=== PATIENT | female | born 1955 | race Caucasian/White ===

== ENCOUNTER 2016-11-22 05:07 | Inpatient (IN) | payer OTHER ==
[~2016-11-22] VITALS: Ht 172.7 cm; Wt 92.6 kg
[~2016-11-22 05:07] MED LIST: ALPRAZOLAM0.5 MG PO; AMBIEN5 MG PO; AMLODIPINE BESY10 MG PO; ASPIRIN81 M1 PO; CALCIUM 600 +1 EACH PO; CARBAMAZEPINE100 MG PO; CARBATROL-ER100 MG PO; CLOTRIMAZOLE; CYMBALTA30 MG PO; CYMBALTA60 MG PO; DILAUDID2 MG PO; GLUCOVANCE 21 TABLET PO; GLYBURID-METFO1 EAC1 PO; GLYBURID-METFO1 EAC2 PO; LEVOTHROID25 MCG PO; LEVOXYL25 MCG PO; LISINOPRIL10 MG PO; LISINOPRIL2.5 MG PO; LORAZEPAM0.5 MG PO; LUNESTA3 MG PO; NEURONTIN100 MG PO; NORVASC10 MG PO; OXYCODONE HCL10 MG PO; PERCOCET 5/31 TABLET PO; ST. JOSEPH ASPI81 MG PO; TRIPLE ANTIBIOTIC OI; XANAX0.5 MG PO; ZESTRIL2.5 MG PO; ZOLOFT100 MG PO; ZOLPIDEM TARTRAT5 MG PO; ZOVIRAX TP; [UNRECOGNIZED DRUG - OTHER]
[2016-11-22 05:40] LABS: EOSINOPHIL (%) 0.2 % (0-5); HEMATOCRIT 40.7 % (36.0-46.0); IMMATURE GRANULOCYTE (%) 0.6 % (0.0-0.7); IMMATURE GRANULOCYTE COUNT 0.1 K/uL; INSTRUMENT ABS NEUTROPHIL CT 14.5 K/uL; MCH 28.4 PG (29.0-34.0); MCHC 31.2 G/DL (30.0-36.0); MCV 91.1 FL (83-99); MEAN PLAT.VOLUME 11.1 uM^3 (9.5-12.4); MONOCYTE (%) 3.8 % (3-12); MONOCYTE COUNT 0.6 K/uL (0-0.8); NEUTROPHIL COUNT 14.5 K/uL (1.8-6.4); PLATELET COUNT 200 K/uL (156-360); RBC DIS.WIDTH-CV 12.4 % (11.8-14.6); RBC DIS.WIDTH-SD 41.1 % (39-53); RED BLOOD COUNT 4.47 M/uL (3.80-5.20); WHITE BLOOD COUNT 16.2 K/uL (4.1-10.2)
[2016-11-22 05:51] LABS: CHLORIDE 107 mEq/L (99-109); POTASSIUM 3.7 mEq/L (3.7-5.4); SODIUM 140 mEq/L (136-147)
[2016-11-22 05:53] LABS: GLUCOSE 253 mg/dL (70-99)
[2016-11-22 05:54] LABS: ANION GAP 17 MEQ/L (2-14)
[2016-11-22 05:55] LABS: TOTAL BILIRUBIN 0.1 mg/dL (0.0-1.0)
[2016-11-22 05:56] LABS: SERUM ETHYL ALCOHOL < 10 mg/dL
[2016-11-22 05:57] LABS: GFR ESTIMATE (CALCULATED) 33 mL/min/
[2016-11-22 05:58] LABS: ALKALINE PHOSPHATASE 128 IU/L (3-129)
[2016-11-22 05:59] LABS: UREA NITROGEN (BUN) 22 mg/dL (9-23)
[2016-11-22 06:00] LABS: SALICYLATE < 5.0 MG/DL (15-30)
[2016-11-22 06:01] LABS: CREATINE KINASE 773 IU/L (1-294); TOTAL CK 773 IU/L (1-294); TROP-I INTERPRETATION NEGATIVE; TROPONIN-I 0.02 ng/mL (0.0-0.30)
[2016-11-22 06:06] LABS: CK-MB 24.6 ng/mL (0.0-4.9)
[2016-11-22 06:32] LABS: ADD MIUA? YES; BILIRUBIN NEGATIVE; BLOOD MODERATE; COLOR YELLOW ((YELLOW)); GLUCOSE (STRIP) 50; KETONES NEGATIVE; LEUKOCYTES NEGATIVE; NITRITE NEGATIVE; PROTEIN (STRIP) 100; SPECIFIC GRAVITY 1.017 (1.000-1.030); UROBILINOGEN 0.2 MG/DL (0.2-1.0)
[2016-11-22 06:40] LABS: AMPHETAMINE NEGATIVE (500 ng/mL); BARBITURATES NEGATIVE (200 ng/mL); BENZODIAZEPINES NEGATIVE (150 ng/mL); COCAINE NEGATIVE (150 ng/mL); INTERNAL CONTROLS VALID? YES; METHADONE NEGATIVE (200 ng/mL); METHAMPHETAMINE NEGATIVE (500 ng/mL); OPIATES (MORPHINE) PRESUMPTIVE POSITIVE (100 ng/mL); OXYCODONE NEGATIVE (100 ng/mL); PHENCYCLIDINE NEGATIVE (25 ng/mL); PROPOXYPHENE NEGATIVE (300 ng/mL); THC CANNABINOIDS PRESUMPTIVE POSITIVE (50 ng/mL); TRICYCLIC ANTIDEPRESSANTS NEGATIVE (300 ng/mL)
[2016-11-22 06:41] LABS: ADD MEDTOX COMMENT Y
[2016-11-22 06:42] LABS: BACTERIA NONE SEEN /HPF; EPITHELIAL CELLS RARE /HPF; MUCUS TRACE /LPF; RED BLOOD CELLS 0-5 /HPF (0-5); UCUL ADDED? NO; WHITE BLOOD CELLS 0-5 /HPF (0-5)
[2016-11-22 10:56] VITALS: BP 109/59
[2016-11-22 11:32] LABS: HDL CHOLESTEROL 50 MG/DL (Desirable>=50); LDL CHOLESTEROL 154 mg/dL (Desirable<100); NON-HDL CHOLESTEROL 175 mg/dL (Desirable<160); TOTAL CHOLESTEROL 225 mg/dL (Desirable<200); TRIGLYCERIDES 105 MG/DL (Normal: <150)
[2016-11-22 11:47] LABS: Estimated Average Glucose 126 mg/dL (70-123)
[2016-11-22 15:47] VITALS: BP 130/73
[2016-11-22 20:32] VITALS: BP 136/79
[2016-11-22 23:48] VITALS: BP 141/66
[2016-11-23 04:12] VITALS: BP 160/89
[2016-11-23 06:38] LABS: ANION GAP 11 MEQ/L (2-14); CHLORIDE 110 MEQ/L (99-109); SAMPLE HEMOLYSIS CHECK 1; SAMPLE ICTERIC CHECK 0; SAMPLE LIPEMIA CHECK 0; SODIUM 143 MEQ/L (136-147); UREA NITROGEN (BUN) 14 mg/dL (9-23)
[2016-11-23 06:54] LABS: GFR ESTIMATE (CALCULATED) > 59 mL/min/; GLUCOSE 91 mg/dL (70-99)
[2016-11-23 07:32] VITALS: BP 157/84
[2016-11-23 08:19] LABS: HEMATOCRIT 36.7 % (36.0-46.0); HEMATOLOGY COMMENT 1 SMEAR COMPATIBLE; MCH 29.7 PG (29.0-34.0); MCHC 34.3 G/DL (30.0-36.0); MCV 86.6 FL (83-99); MEAN PLAT.VOLUME 12.9 uM^3 (9.5-12.4); PLAT.SUFFICIENCY DECREASED; PLATELET COUNT 114 K/uL (156-360); RBC DIS.WIDTH-CV 12.4 % (11.8-14.6); RED BLOOD COUNT 4.24 M/uL (3.80-5.20); WHITE BLOOD COUNT 7.4 K/uL (4.1-10.2)
[2016-11-23 15:05] VITALS: BP 180/98
[2016-11-23 15:09] VITALS: BP 180/98
[2016-11-23 15:55] VITALS: BP 142/84
[2016-11-24 00:07] VITALS: BP 151/82
[2016-11-24 07:28] VITALS: BP 161/89
[2016-11-24 16:21] VITALS: BP 159/78
[2016-11-25 03:57] VITALS: BP 154/91; BP 179/84
[2016-11-25 07:31] VITALS: BP 179/86
[2016-11-25 16:18] VITALS: BP 163/86
[2016-11-25 23:40] VITALS: BP 166/84
[2016-11-26 03:59] VITALS: BP 181/85
[2016-11-26 06:21] LABS: HEMATOCRIT 39.2 % (36.0-46.0); MCH 29.2 PG (29.0-34.0); MCHC 34.4 G/DL (30.0-36.0); MCV 84.7 FL (83-99); MEAN PLAT.VOLUME 11.1 uM^3 (9.5-12.4); RBC DIS.WIDTH-CV 12.3 % (11.8-14.6); RBC DIS.WIDTH-SD 36.7 % (39-53); RED BLOOD COUNT 4.63 M/uL (3.80-5.20); WHITE BLOOD COUNT 6.4 K/uL (4.1-10.2)
[2016-11-26 06:22] LABS: PLATELET COUNT 165 K/uL (156-360)
[2016-11-26 06:47] LABS: ANION GAP 10 MEQ/L (2-14); CHLORIDE 103 MEQ/L (99-109); POTASSIUM 3.5 MEQ/L (3.7-5.4); SAMPLE HEMOLYSIS CHECK 0; SAMPLE ICTERIC CHECK 0; SAMPLE LIPEMIA CHECK 0; SODIUM 142 MEQ/L (136-147)
[2016-11-26 07:14] LABS: GFR ESTIMATE (CALCULATED) > 59 mL/min/; GLUCOSE 124 mg/dL (70-99); UREA NITROGEN (BUN) 13 mg/dL (9-23)
[2016-11-26 07:45] VITALS: BP 180/83
[2016-11-26] MEDS ORDERED: PRAVASTATIN SOD80 MG PO (15:09)
[2016-11-26] MEDS ORDERED: TYLENOL REGULA325 MG PO (15:10)
[2016-11-26] MEDS ORDERED: LISINOPRIL10 MG PO (15:10)
[2016-11-26] MEDS ORDERED: ASPIR-LOW81 MG PO (15:10)
[2016-11-26] MEDS ORDERED: Tums,OsCal PO (15:11)
[2016-11-26 15:39] VITALS: BP 170/82
== END 2016-11-26 18:17 | DRG 917 ==
LOC: EME → EDBD 05:07 → 5SOUTH 06:30 → EDOF 06:30 → ENRESERV 06:56 → 5SOUTH 09:53
PROVIDERS: Emergency Medicine; Family Medicine
DX: T40.601A Poisoning by unspecified narcotics, accidental (unintentional), initial encounter (principal); T42.4X1A Poisoning by benzodiazepines, accidental (unintentional), initial encounter; G93.40 Encephalopathy, unspecified; N39.0 Urinary tract infection, site not specified; N17.9 Acute kidney failure, unspecified; I69.354 Hemiplegia and hemiparesis following cerebral infarction affecting left non-dominant side; M62.82 Rhabdomyolysis; I95.9 Hypotension, unspecified; E03.9 Hypothyroidism, unspecified; I10 Essential (primary) hypertension; F41.9 Anxiety disorder, unspecified; F32.9 Major depressive disorder, single episode, unspecified; G89.4 Chronic pain syndrome; M19.90 Unspecified osteoarthritis, unspecified site; E11.9 Type 2 diabetes mellitus without complications; E78.5 Hyperlipidemia, unspecified; F12.90 Cannabis use, unspecified, uncomplicated; F13.10 Sedative, hypnotic or anxiolytic abuse, uncomplicated; G40.909 Epilepsy, unspecified, not intractable, without status epilepticus; R09.02 Hypoxemia; G47.00 Insomnia, unspecified; M24.542 Contracture, left hand; Z66 Do not resuscitate; E66.9 Obesity, unspecified; Z68.31 Body mass index [BMI] 31.0-31.9, adult; Z79.82 Long term (current) use of aspirin; Z88.0 Allergy status to penicillin
CPT/HCPCS: 36600; 70450; 71010; 80048; 80053; 80061; 81003; 82550; 82553; 82803; 83036; 83605; 84484; 84999; 85025; 85027; 87040; 92526 GN; 92610 GN; 93005; 94799; 95819; 97530 GP; 99281; 99285; G0480; J0696; J1953; J2060; J2310; J7030; J7050